=== PATIENT | male | born 1940 | race Caucasian/White ===

== ENCOUNTER 2020-02-10 13:08 | Inpatient (IN) | payer OTHER ==
[~2020-02-10] VITALS: Ht 180.3 cm; Wt 100.4 kg
[2020-02-10] MEDS ORDERED: AMLO5TAB15 PO (14:11)
[2020-02-10] MEDS ORDERED: DOXA1TAB50 PO (14:11)
[2020-02-10] MEDS ORDERED: EZET1TAB6 PO (14:11)
[2020-02-10 14:29] LABS: Basophils # (auto) 0.1 10 ^3/uL (0-0.2); Eosinophils # (auto) 0 10 ^3/uL (0-0.8); Eosinophils % (auto) 0.1 % (0.0-7.0); Hematocrit 37.4 % (41.0-53.0); Hemoglobin 12.6 g/dL (13.5-17.5); Lymphocytes # (auto) 0.8 10 ^3/uL (0.4-5.4); Lymphocytes % (auto) 12.9 % (10.0-50.0); Mean Corpuscular Hgb Conc. 33.8 g/dL (32.0-36.0); Mean Corpuscular Volume 88.7 fL (80.0-100.0); Monocytes # (auto) 0.7 10 ^3/uL (0-1.3); Monocytes % (auto) 11.5 % (0.0-12.0); Neutrophils # (auto) 4.6 10 ^3/uL (1.6-8.6); Neutrophils % (auto) 74.5 % (37.0-80.0); Platelet Count (auto) 212 10^3/uL (140-450); Red Blood Cells 4.21 10^6/uL (4.5-5.90); Red Cell Distribution Width 14.1 % (11.8-14.3); White Blood Cell 6.2 10^3/uL (4.4-10.8)
[2020-02-10] MEDS ORDERED: ASCORBIC ACID 500 MG TAB PO ONE (14:45)
[2020-02-10] MEDS ORDERED: PANTOPRAZOLE 40 MG/10 ML VIAL INJ IV ONE (14:45)
[2020-02-10] MEDS ORDERED: ZINC SULFATE 220mg CAP or TAB PO ONE (14:45)
[2020-02-10] MEDS ORDERED: AZITHROMYCIN 500MG/ 250ML 250 ML IV ONE (14:45)
[2020-02-10] MEDS ORDERED: methylPREDNISolone SOD SUCC 125 MG/2 ML VL IV ONE (14:45)
[2020-02-10 14:46] LABS: Alanine Aminotransferase 25 U/L (16-61); Albumin 3.4 g/dL (3.4-5.0); Anion Gap 6 (5-15); Blood Urea Nitrogen 23 mg/dL (7-18); Calcium 8.4 mg/dL (8.5-10.1); Carbon Dioxide 22 mmol/L (21-32); Chloride 105 mmol/L (98-107); Glucose 114 mg/dL (74-106); Potassium 4.5 mmol/L (3.5-5.1); Sodium 133 mmol/L (136-145)
[2020-02-10 14:51] LABS: Alkaline Phosphatase 58 U/L (45-117); Aspartate Aminotransferase 27 U/L (15-37); BUN/Creatinine Ratio 13.5; Bilirubin, Total 0.7 mg/dL (0.2-1.0); GFR African American 50 mL/min; GFR Non-African American 41 mL/min; Total Protein 7.4 g/dL (6.4-8.2)
[2020-02-10] MEDS: SODIUM CHLORIDE 0.9% 1,000 ML IV SCH (15:18)
[2020-02-10] MEDS ORDERED: traMADol HCL 50 MG TAB PO PRN (15:30)
[2020-02-10] MEDS ORDERED: ACETAMINOPHEN 500 MG TAB PO PRN ×2 (15:30)
[2020-02-10] MEDS ORDERED: NITROGLYCERIN 0.4 MG SL TAB SL PRN (15:30)
[2020-02-10] MEDS ORDERED: PROMETHAZINE HCL 25 MG/ML 1ML IV PRN (15:30)
[2020-02-10] MEDS ORDERED: MORPHINE SULF INJ 2 MG/ML SYRINGE 1ML IV PRN (15:30)
[2020-02-10] MEDS ORDERED: TEMAZEPAM 15 MG CAP PO PRN (15:30)
[2020-02-10 15:54] LABS: Magnesium 2.4 mg/dL (1.6-2.6)
[2020-02-10] MEDS ORDERED: CINN500C7 PO (16:18)
[2020-02-10] MEDS ORDERED: MULT-1018 PO (16:18)
[2020-02-10] MEDS ORDERED: TURM500C3 OR (16:18)
[2020-02-10] MEDS ORDERED: POM (16:20)
[2020-02-10 22:00] VITALS: BP 139/65
[2020-02-10] MEDS ORDERED: ENOXAPARIN SOD 40 MG/0.4 ML SYRINGE SC SCH ×2 (22:00)
[2020-02-10] MEDS ORDERED: SALINE 0.65 % NASAL SPRAY 45ML BOTTLE EACHNOSTRI SCH (22:00)
[2020-02-10] MEDS: ALBUTEROL SULF HFA 90MCG INH 200DOSE IN SCH (22:54)
[2020-02-10] MEDS: FEXOFENADINE HCL 60 MG TAB PO SCH (22:54)
[2020-02-10] MEDS: ENOXAPARIN SOD 100 MG/1 ML SYRINGE SC SCH (22:55)
[2020-02-11 01:46] VITALS: BP 139/65
[2020-02-11 05:00] VITALS: BP 143/86
[2020-02-11] MEDS: SODIUM CHLORIDE 0.9% 1,000 ML IV SCH (05:15)
[2020-02-11] MEDS: ALBUTEROL SULF HFA 90MCG INH 200DOSE IN SCH ×2 (05:59→14:36)
[2020-02-11 07:14] LABS: Basophils # (auto) 0 10 ^3/uL (0-0.2); Basophils % (auto) 0.6 % (0.0-2.0); Eosinophils # (auto) 0 10 ^3/uL (0-0.8); Hematocrit 37.2 % (41.0-53.0); Hemoglobin 12.8 g/dL (13.5-17.5); Lymphocytes # (auto) 0.4 10 ^3/uL (0.4-5.4); Lymphocytes % (auto) 10.6 % (10.0-50.0); Mean Corpuscular Hemoglobin 30.5 pg (28.0-32.0); Mean Corpuscular Hgb Conc. 34.4 g/dL (32.0-36.0); Mean Corpuscular Volume 88.8 fL (80.0-100.0); Monocytes # (auto) 0.2 10 ^3/uL (0-1.3); Monocytes % (auto) 5.9 % (0.0-12.0); Neutrophils # (auto) 3.1 10 ^3/uL (1.6-8.6); Neutrophils % (auto) 82.9 % (37.0-80.0); Platelet Count (auto) 218 10^3/uL (140-450); Red Blood Cells 4.18 10^6/uL (4.5-5.90); White Blood Cell 3.8 10^3/uL (4.4-10.8)
[2020-02-11 07:26] LABS: Calcium 8.2 mg/dL (8.5-10.1); Potassium 4.3 mmol/L (3.5-5.1)
[2020-02-11 07:28] LABS: BUN/Creatinine Ratio 16.3
[2020-02-11 07:30] LABS: Bilirubin, Total 0.6 mg/dL (0.2-1.0); Total Protein 7.1 g/dL (6.4-8.2)
[2020-02-11 08:35] VITALS: BP 148/81
[2020-02-11] MEDS ORDERED: levoFLOXacin 500MG 100 ML IV SCH (10:00)
[2020-02-11] MEDS ORDERED: ZINC SULFATE 220mg CAP or TAB PO SCH (10:00)
[2020-02-11] MEDS ORDERED: ASPirin 81 mg TAB PO SCH (10:00)
[2020-02-11] MEDS ORDERED: CHOLECALCIFEROL (VITD3) 1,000IU=25mCg TAB PO SCH (10:00)
[2020-02-11] MEDS ORDERED: ASCORBIC ACID 1,000 MG TAB PO SCH (10:00)
[2020-02-11] MEDS: FEXOFENADINE HCL 60 MG TAB PO SCH (10:35)
[2020-02-11] MEDS: ENOXAPARIN SOD 100 MG/1 ML SYRINGE SC SCH (10:35)
[2020-02-11 13:11] VITALS: BP 127/68
[2020-02-11] MEDS ORDERED: ASPI81CH43 PO (14:36)
[2020-02-11] MEDS ORDERED: CHOL20007 PO (14:36)
[2020-02-11] MEDS ORDERED: ASCO10003 PO (14:36)
[2020-02-11] MEDS ORDERED: AZIT500T66 PO (14:36)
[2020-02-11] MEDS ORDERED: ALBUAER3 IN (14:36)
[2020-02-11 16:44] VITALS: BP 135/75
== END 2020-02-11 17:33 | disposition home or self-care (01) | DRG 177 ==
LOC: ER 13:08 → TELE 13:09 → TELE-EAST 16:56
PROVIDERS: ADMIT Internal Medicine; ATTEND Internal Medicine
DX: U07.1 COVID-19 (principal); J12.89 Other viral pneumonia; E87.1 Hypo-osmolality and hyponatremia; N17.9 Acute kidney failure, unspecified; F41.9 Anxiety disorder, unspecified; E78.5 Hyperlipidemia, unspecified; N40.0 Benign prostatic hyperplasia without lower urinary tract symptoms; Z87.442 Personal history of urinary calculi; N18.9 Chronic kidney disease, unspecified; I12.9 Hypertensive chronic kidney disease with stage 1 through stage 4 chronic kidney disease, or unspecified chronic kidney disease
CPT/HCPCS: 36415; 71045; 74176; 80053; 82550; 82728; 83615; 83735; 83880; 84484; 85025; 85379; 86141; 93005; 93970; 94640; 96361; 96365; 96375; C9113; G0378; J1956

== ENCOUNTER → 2024-03-01 | Outpatient (CLI) | payer OTHER ==
[~2024-03-01] VITALS: Ht 180.3 cm; Wt 104.3 kg
[~2024-03-01] MED LIST: ADENOSINE 88 MG in GIVE UN-DILUTED 0 ML IV ONE; ADENOSINE 90 MG/30 ML INJ IV ONE; ALBUAER3 IN; AMLO1TAB22 PO; ASCO10003 PO; ASPI81CH43 PO; AZIT500T66 PO; CHOL20007 PO; CINN500C7 PO; DOXA1TAB50 PO; EZET1TAB90 PO; MULT-1018 PO; POM; TURM500C3 OR
== END | disposition home or self-care (01) ==
LOC: Rad HDHVI 14:30
PROVIDERS: ATTEND Internal Medicine Cardiovascular Disease
DX: I16.0 Hypertensive urgency (principal); R06.02 Shortness of breath; I12.9 Hypertensive chronic kidney disease with stage 1 through stage 4 chronic kidney disease, or unspecified chronic kidney disease; N18.9 Chronic kidney disease, unspecified
CPT/HCPCS: 78452; 93005; 96374; A9500; J0153; 96375

== ENCOUNTER → 2024-03-02 | Outpatient (CLI) | payer OTHER ==
[~2024-03-02] MED LIST changes: -ADENOSINE 88 MG in GIVE UN-DILUTED 0 ML IV ONE; -ADENOSINE 90 MG/30 ML INJ IV ONE
== END | disposition home or self-care (01) ==
LOC: Rad HDHVI 15:51
PROVIDERS: ATTEND Internal Medicine Cardiovascular Disease
DX: I08.8 Other rheumatic multiple valve diseases (principal); R42 Dizziness and giddiness
CPT/HCPCS: 93306